=== PATIENT | female | born 1970 | race Hispanic/Latino ===

== ENCOUNTER 2016-04-09 03:20 | Emergency (ER) | payer SELFPAY ==
[2016-04-09 03:56] LABS: Bilirubin Negative (Negative); Blood, Urine Small (Negative); Glucose, Urine (Dipstick) Negative (Negative); Ketone, Urine Negative (Negative); Nitrite Negative (Negative); Protein, Urine (Dipstick) Negative (Neg-Trace); Urobilinogen 0.2 mg/dL (0.2-1.0)
[2016-04-09 03:57] LABS: RBC/HPF 0-3 HPF (0-3)
[2016-04-09 03:58] LABS: Bacteria/HPF None Seen HPF (None Seen); Squamous Epithelial 0-3 HPF (0-3)
[2016-04-09] MEDS ORDERED: Fentanyl 100 MCG/2 ML VIAL ONE (04:03)
[2016-04-09] MEDS ORDERED: Ondansetron HCl/PF 4 MG/2 ML Vial ONE (04:03)
[2016-04-09] MEDS ORDERED: Pantoprazole 40 MG VIAL ONE (04:03)
[2016-04-09 04:09] LABS: #Basophils 0.1 thou/uL (0.0-0.2); #Eosinphils 0.1 thou/uL (0.0-0.7); #Lymphocytes 1.9 thou/uL (1.20-3.40); #Monocytes 0.9 thou/uL (0.11-0.59); #Neutrophils 10.1 thou/uL (1.40-6.50); %Basophils 1.1 % (0.0-1.0); %Eosinophils 0.4 % (0.0-10.0); %Lymphocytes 14.4 % (21.0-51.0); %Monocytes 6.5 % (0.0-10.0); Hematocrit 42.5 % (36.0-47.0); Mean Platelet Volume 8.9 fL (7.4-10.4); Red Blood Cell (RBC) Count 4.76 mill/uL (4.20-5.40)
[2016-04-09 04:23] LABS: Amylase 53 U/L (25-125); Anion Gap 16 mmol/L (10-20); BUN (Urea Nitrogen) 13 mg/dL (7.0-18.7); Calc. Creatinine Clearance 0 mL/min (70-130); Calcium 9.6 mg/dL (7.8-10.44); Carbon Dioxide 22 mmol/L (22-29); Chloride 105 mmol/L (98-107); Estimated GFR-MDRD 59; Lipase 21 U/L (8-78)
[2016-04-09 04:24] LABS: Troponin I Less than 0.010 ng/mL (< 0.028)
[2016-04-09] MEDS ORDERED: Sodium Chloride 0.9% 1,000 ML ONE (05:02)
[2016-04-09] MEDS ORDERED: Ketorolac Tromethamine 30 MG/ML VIAL ONE (06:11)
--- NOTE | 2016-04-09 08:01 | CT ---
PRELIMINARY REPORT/[facility]/EMERGENCY AFTER HOURS PROCEDURE: EXAM: CT Abdomen and Pelvis With Intravenous Contrast. CLINICAL HISTORY: 45 years old, female; Pain; Abdominal pain; Acute; Patient HX: Left upper quadrant pain; TECHNIQUE: Axial computed tomography images of the abdomen and pelvis with intravenous contrast. Coronal and sagittal reformatted images were created and reviewed. CONTRAST: 95 mL of ISOVUE 370 administered intravenously. COMPARISON: No relevant prior studies available. FINDINGS: The lung bases are clear. Kidneys: Delayed concentration of contrast by the left kidney. Mild left hydronephrosis and hydroureter. There is a 3 mm distal left ureteral calculus, at the urinary bladder. The calculus is probably in the intramural portion of the distal ureter. It is possible that it has already been passed into the urinary bladder. Please correlate clinically. Probable small left renal cyst. Right kidney appears essentially unremarkable. No definite gallbladder abnormality by CT. No biliary tree dilation. There is fatty infiltration of the liver. Unremarkable appearance of the spleen, adrenal glands, and pancreas. No free air, ascites, or bowel distention. No retroperitoneal adenopathy. CT pelvis: The appendix is visualized and appears normal. There are no CT findings to strongly suggest diverticulitis. No abnormal mass or fluid collection in the pelvis. IMPRESSION: There is a 3 mm distal left ureteral calculus, details above. Mild left hydronephrosis and hydroureter. No diverticulitis. No free air or bowel distention. Normal appendix. Other findings discussed above. Thank you for allowing us to participate in the care of your patient. Dictated and Authenticated by: Cesar Ness MD 04/09/2016 5:50 AM Central Time ([place] \T\ [place]) FINAL REPORT CT ABDOMEN AND PELVIS WITH IV CONTRAST I agree with the preliminary report given by Dr. Cesar Ness of [facility]. POS: [facility]
[2016-04-09] MEDS ORDERED: Iopamidol 370 76% 100 ML VIAL ONE ×2 (17:29→17:31)
== END 2016-04-09 06:20 | disposition home or self-care (01) ==
LOC: NAV ERS 03:20
DX: N13.2 Hydronephrosis with renal and ureteral calculous obstruction (principal); E11.9 Type 2 diabetes mellitus without complications; Z79.899 Other long term (current) drug therapy
CPT/HCPCS: 74177; 80048; 81003; 81015; 81025; 82150; 82553; 83690; 84484; 85025; 93005; 96361; 96374; 96375; C9113; J1885; J2405; J3010; J7050

== ENCOUNTER 2022-10-24 08:41 | Outpatient (CLI) | payer OTHER | END 2022-10-24 08:42 | disposition home or self-care (01) | LOC: NAV RAD 08:41 | PROVIDERS: ATTEND Nurse Practitioner Family | DX: M54.6 Pain in thoracic spine (principal); M47.814 Spondylosis without myelopathy or radiculopathy, thoracic region | CPT/HCPCS: 72072 ==